=== PATIENT | male | born 1955 | race American Indian/Alaskan Native ===

== ENCOUNTER 2024-08-20 10:58 | Emergency (ER) | payer MEDICARE, OTHER ==
[~2024-08-20] VITALS: Ht 170.2 cm; Wt 41.6 kg
[2024-08-20] MEDS ORDERED: ondansetron HCL 4 MG/2 ML VIAL IV PRN (11:15)
[2024-08-20] MEDS ORDERED: ondansetron HCL 4 MG/2 ML VIAL IV ONE (11:15)
[2024-08-20] MEDS ORDERED: SODIUM CHLORIDE 0.9% 1,000 ML IV PRN (11:15)
[2024-08-20 11:22] LABS: BASOPHILS 0.3 % (0-2); EOSINOPHILS 0.2 % (0-6); HEMATOCRIT 30.7 % (35.0-50.0); HEMOGLOBIN 9.3 g/dL (12.0-18.0); LYMPHOCYTES 9.5 % (24-44); MCH 21.2 (27-36); MCHC 30.2 g/dl (30-36); MCV 70.5 fl (81-99); PLATELET COUNT 594 K/uL (140-440); RBC 4.35 M/ul (4.3-5.7); RDW 19.3 (10.5-15.0)
[2024-08-20 11:29] LABS: INR 1.21 (0.80-1.30); PROTIME 14.9 Sec (11.2-14.2)
[2024-08-20] MEDS ORDERED: HYDROmorphone HCL 1 MG/ML SYR IV PRN (11:30)
[2024-08-20 11:36] LABS: ALBUMIN 2.1 g/dL (3.4-5.0); ALBUMIN/GLOBULIN RATIO 0.51 (1.1-2.4); ANION GAP 14.2 (7-21); BILIRUBIN, TOTAL 0.8 ng/dL (0.2-1.0); BUN/CREATININE RATIO 15.38 (6.0-28.6); CALCIUM 8.2 mg/dL (8.5-10.1); CREATININE, SERUM 1.56 mg/dL (0.70-1.30); POTASSIUM 3.2 mmol/L (3.5-5.1); PROTEIN, TOTAL 6.2 g/dL (6.4-8.2)
[2024-08-20] MEDS ORDERED: PANTOPRAZOLE SODIUM 40 MG/10 ML VIAL IV ONE (13:00)
[2024-08-20] MEDS ORDERED: CEFTRIAXONE/SODIUM CHLORIDE 2 GM/100 ML PIGGYBACK IV ONE (13:15)
[2024-08-20] MEDS ORDERED: metroNIDAZOLE/SODIUM CHLORIDE 500 MG/100 ML PIGGYBACK IV ONE (13:15)
[2024-08-20 18:40] VITALS: BP 120/80
--- NOTE | 2024-08-20 22:09 | EKG ---
[facility] [address] [facility] [place] [address] Signed Normal sinus rhythm Nonspecific ST and T wave abnormality Prolonged QT Abnormal ECG No previous ECGs available Confirmed by Yayo Garcia MD () on 08/20/2024 10:08:41 PM Electronically Signed By: YAYO GARCIA MD 08/20/242208 PATIENT NAME: TRUONG CORDERO Electrocardiogram DATE OF : 55 PHYSICIAN: YAYO GARCIA MD REPORT #: [id number] REPORT IS CONFIDENTIAL AND NOT TO BE RELEASED WITHOUT AUTHORIZATION
== END 2024-08-20 18:40 | disposition short-term general hospital (02) ==
LOC: ED 10:58
PROVIDERS: Emergency Medicine
DX: C19 Malignant neoplasm of rectosigmoid junction (principal); C78.7 Secondary malignant neoplasm of liver and intrahepatic bile duct; E46 Unspecified protein-calorie malnutrition; Z68.1 Body mass index [BMI] 19.9 or less, adult
CPT/HCPCS: 36415; 71260; 74177; 80053; 83690; 83735; 85025; 85610; 93005; 93010; 96361; 96368; 99285-25; J0696; J1171; J2405; J2470; J7030; Q9967

== ENCOUNTER 2024-09-21 08:43 | Inpatient (IN) | payer MEDICARE, OTHER ==
[2024-09-21] VITALS (8 sets, daily range): BP systolic 86–105; BP diastolic 59–71
[~2024-09-21] VITALS: Ht 170.2 cm; Wt 54.7 kg
--- OUTSIDE RECORDS SUMMARY | ~2024-09-21 | XMS | Continuity of Care Document ---
Demographics + + + | Address | [address] | | | [place] [address] | + + + | Preferred Language | Unknown | + + + | Marital Status | Unknown | + + + | Quaker Affiliation | Unknown | + + + | Race | or | + + + | Ethnic Group | Not or | + + + Author + + + | Author | [place] | + + + | Organization | [facility] | + + + | Address | [address] | | | [place] [address] | + + + | Phone | | + + + Care Team Providers + + + + | Care Kick Boxer Name | Role | Phone | + + + + Unavailable | Unavailable | + + + + Allergies No information. Encounters No information. Functional Status No information. Immunizations No information. Medications No information. 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 | | + + + + | 2024-08-21 00:42:24 | Peptic ulcer, site | [facility] | | | unspecified, unspecified as | | | | acute or chronic, without | | | | hemorrhage or perforation | | + + + + | 2024-08-21 00:42:24 | Acute kidney failure, | [facility] | | | unspecified | | + + + + | 2024-08-21 00:42:24 | Ischemia and infarction of | [facility] | | | kidney | | + + + + | 2024-09-03 13:57:39 | Malignant neoplasm of | [facility] | | | colon, unspecified | | + + + + | 2024-09-03 13:57:39 | 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 | | + + + + | 2024-09-03 13:57:39 | 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 | | + + + + | 2024-09-03 13:57:39 | Iron deficiency anemia, | [facility] | | | unspecified | | + + + + | 2024-09-03 13:57:39 | Thrombocytosis, | [facility] | | | unspecified | | + + + + | 2024-09-03 13:57:39 | Unspecified severe | [facility] | | | protein-calorie | | | | malnutrition | | + + + + | 2024-09-03 13:57:39 | Other disorders of | [facility] | | | phosphorus metabolism | | + + + + | 2024-09-03 13:57:39 | Hypomagnesemia | [facility] | + + + + | 2024-09-03 13:57:39 | Hypokalemia | [facility] | + + + + | 2024-09-03 13:57:39 | Peptic ulcer, site | [facility] | | | unspecified, unspecified as | | | | acute or chronic, without | | | | hemorrhage or perforation | | + + + + | 2024-09-03 13:57:39 | Disease of intestine, | [facility] | | | unspecified | | + + + + | 2024-09-03 13:57:39 | Acute kidney failure, | [facility] | | | unspecified | | + + + + | 2024-09-03 13:57:39 | Ischemia and infarction of | [facility] | | | kidney | | + + + + | 2024-09-03 13:57:39 | Localized edema | [facility] | + + + + | 2024-09-16 16:00:07 | Post-op | [facility] | + + + + Procedures No information. Results/Labs No information. Social History +--------+ + + | date | description | facility | +--------+ + + Vital Signs No information."
--- OUTSIDE RECORDS SUMMARY | ~2024-09-21 | XMS | Continuity of Care Document ---
Demographics + + + | Address | [address] | | | [place] [address] | + + + | Preferred Language | Unknown | + + + | Marital Status | Unknown | + + + | Latter Day Affiliation | Unknown | + + + | Race | or | + + + | Ethnic Group | Not or | + + + Author + + + | Author | [place] | + + + | Organization | [place] | + + + | Address | [address] [facility] [address] | | | [place] [address] | + + + | Phone | | + + + Care Team Providers + + + + | Care Gold Miner Name | Role | Phone | + [...]
[2024-09-21 09:03] LABS: PH, VENOUS 7.393 (7.31-7.41)
[2024-09-21 09:06] LABS: BASOPHILS 0.3 % (0-2); EOSINOPHILS 0.3 % (0-6); HEMATOCRIT 26.5 % (35.0-50.0); HEMOGLOBIN 8.1 g/dL (12.0-18.0); LYMPHOCYTES 7.4 % (24-44); MCHC 30.5 g/dl (30-36); MCV 78.5 fl (81-99); MONOCYTES 6.4 % (0-12); NEUTROPHILS 85.6 % (39-80); PLATELET COUNT 567 K/uL (140-440); RBC 3.37 M/ul (4.3-5.7); RDW 23.8 (10.5-15.0)
[2024-09-21 09:18] LABS: INR 1.2 (0.80-1.30); PROTIME 15.1 Sec (11.2-14.2)
[2024-09-21 09:29] LABS: ALBUMIN 1.5 g/dL (3.4-5.0); ALBUMIN/GLOBULIN RATIO 0.35 (1.1-2.4); ANION GAP 19.1 (7-21); BILIRUBIN, TOTAL 0.7 ng/dL (0.2-1.0); BUN/CREATININE RATIO 9.57 (6.0-28.6); CALCIUM 7.5 mg/dL (8.5-10.1); CREATININE, SERUM 0.94 mg/dL (0.70-1.30); POTASSIUM 3.1 mmol/L (3.5-5.1); PROTEIN, TOTAL 5.8 g/dL (6.4-8.2)
[2024-09-21 09:31] LABS: ALCOHOL, MEDICAL <3 ng/dL (<3); LACTATE DEHYDROGENASE 1959 U/L (85-227)
[2024-09-21] MEDS ORDERED: LORazepam 2 MG/ML VIAL IV ONE ×2 (09:45→10:30)
[2024-09-21] MEDS ORDERED: DEXTROSE 5% IV ONE (11:45)
[2024-09-21] MEDS ORDERED: VANCOMYCIN HCL IV ONE (11:45)
[2024-09-21] MEDS ORDERED: CEFTRIAXONE/SODIUM CHLORIDE 2 GM/100 ML PIGGYBACK IV ONE (11:45)
[2024-09-21] MEDS ORDERED: VANCOMYCIN HCL 1,250 MG in DEXTROSE 5% 250 ML IV ONE (12:00)
[2024-09-21 12:42] LABS: MONONUCLEAR CELLS, BODY FLUID 89; PMNS, BODY FLUID 11; SOURCE, BODY FLUID ascites
[2024-09-21 12:46] LABS: WBC, BODY FLUID 131
[2024-09-21 12:47] LABS: RBC, BODY FLUID 21
[2024-09-21] MEDS ORDERED: KETAMINE in NS 50 MG/5 ML SYR IV ONE (13:00)
[2024-09-21 13:06] LABS: BILIRUBIN, URINE NEGATIVE (negative); BLOOD/HGB, URINE LARGE (Negative); KETONE, URINE NEGATIVE (Negative); LEUK ESTERASE, URINE NEGATIVE (negative); NITRITE, URINE POSITIVE (negative)
[2024-09-21 13:13] LABS: EPITHELIAL CELLS, URINE TRANSITIONAL 1+ /lpf (0-1+); RED BLOOD CELLS, URINE >50 /hpf (0-5)
[2024-09-21 13:14] LABS: BACTERIA, URINE 3+ /hpf (negative); CASTS, URINE NONE SEEN \\lpf; COLLECTION TYPE, URINE CLEAN CATCH; CRYSTALS, URINE NONE SEEN (0-1+); REFLEX CULTURE, URINE Yes (No)
[2024-09-21 13:26] LABS: AMPHETAMINES, URINE NEGATIVE (NEGATIVE); BARBITURATES, URINE NEGATIVE (NEGATIVE); BENZODIAZEPINE, URINE POSITIVE (NEGATIVE); BUPRENORPHINE, URINE NEGATIVE (NEGATIVE); CANNABINOID, URINE POSITIVE (NEGATIVE); COCAINE, URINE NEGATIVE (NEGATIVE); ECSTASY, URINE NEGATIVE (NEGATIVE); FENTANYL, URINE NEGATIVE (NEGATIVE); METHADONE, URINE NEGATIVE (NEGATIVE); OPIATES, URINE NEGATIVE (NEGATIVE); OXYCODONE, URINE NEGATIVE (NEGATIVE); PHENCYCLIDINE, URINE NEGATIVE (NEGATIVE)
[2024-09-21 14:11] LABS: LACTIC ACID, BLOOD 2.1 mmol/L (0.4-2.0)
[2024-09-21] MEDS ORDERED: SODIUM CHLORIDE 0.9% 1,000 ML IV PRN (16:00)
[2024-09-21] MEDS ORDERED: ACETAMINOPHEN 325 MG TAB PO PRN (16:30)
[2024-09-21] MEDS ORDERED: LACTATED RINGER'S 1,000 ML IV SCH (16:30)
[2024-09-21] MEDS ORDERED: ondansetron HCL 4 MG/2 ML VIAL IV PRN (16:30)
--- NOTE | 2024-09-21 16:48 | NUR ---
68 YEAR OLD ADMITTED TO CCU FROM ER VIA STRETCHER UNDER DR. GARCIA WITH DX OF UTI/SEPSIS. PATIENT NOT ABLE TO ANWERE QUESTIONS ON ADMIT. PATIENT FAMILY IN ROOM AND ABLE TO HELP WITH ADMISSION. NS BOLUS HUNG PER ORDERS.
[2024-09-21] MEDS ORDERED: SODIUM CHLORIDE 0.9% 1,000 ML IV SCH ×2 (17:00→18:00)
[2024-09-21] MEDS ORDERED: MORPHINE SULFATE 4 MG/ML VIAL IV PRN (17:30)
[2024-09-21] MEDS ORDERED: MORPHINE SULFATE 4 MG/ML VIAL ONE (17:31)
[2024-09-21] MEDS ORDERED: LIDOCAINE 2% VISCOUS 6 ML SYR ONE (17:34)
[2024-09-21] MEDS ORDERED: LIDOCAINE 2% VISCOUS 6 ML SYR TOP ONE (17:45)
[2024-09-21] MEDS ORDERED: POTASSIUM CHLORIDE 40 MEQ,LIDOCAINE HCL 1% 40 MG in DEXTROSE 5% 250 ML IV ONE (18:00)
--- NOTE | 2024-09-21 18:00 | NUR ---
CHILLING, AX TEMP 100.7. HR 150. DR. GARCIA AWARE. ISBELL ORDERED. THIS NO DONE FORESKIN TIGHT AND SMALL AMOUNT OF BLEEDING NOTED FROM URETHRAL [facility]. BLADDER SCAN DONE, TOTAL = 117. PUREWICK APPLIED. PATIENTN RESTLESS.
[2024-09-21] MEDS ORDERED: POTASSIUM CHLORIDE 10 MEQ/100 ML BAG IV SCH (19:00)
--- NOTE | 2024-09-21 19:19 | NUR ---
RESTING, REPORT GIVEN. NS BOLUS SECOND LITER INFUSING, LR AT 125 ML/HR INFUSING. K RIDER INFUSING. DR. GARCIA AWARE OF MOST RECENT TEMP OF 101.7, AND U/O AND THE MAG LEVEL.ORDERS RECEIVED,
[2024-09-21] MEDS ORDERED: MAGNESIUM SULFATE 2 GM/50 ML BAG IV SCH (19:30)
[2024-09-21] MEDS ORDERED: KETOROLAC TROMETHAMINE 15 MG/ML VIAL IV PRN (19:30)
--- NOTE | 2024-09-21 20:00 | NUR ---
PATIENT RESTLESS IN BED. NEW CARDIAC LEADS PLACED. PATIENT IS ORIENTED TO SELF. COMPLETES BEDSIDE SWALLOW EVAL WITHOUT CONCERNS. SIPS OF WATER PROVIDED PER REQUEST. PATIENT TOLERTAING ROOM AIR. LUNG SOUNDS ARE DIM THROUGHOUT. ABD FLAT, SOFT, BOWEL SOUNDS ACTIVE. COLOSTOMY IN PLACE, SITE WNL. STOOL IN BAG APPEARS SOFT AND BROWN. PATIENT HAD ONE VOID TO SUCTION CANISTER PER MALE EXTRENAL CATH; URINE IS ORANGE IN COLOR. PATIENT REMOVED EXTERNAL CATH. IV FLUIDS AND ELECTROLYTE REPLACEMENT INFUSING. IV SITES WNL X2. REQUEST ADDITIONAL SITE FROM WILLIAM FABIAN.
[2024-09-21 20:13] LABS: HEMOGLOBIN 6.9 g/dL (12.0-18.0)
[2024-09-21 20:20] LABS: MONOCYTES 0.5 % (0-12)
[2024-09-21 20:22] LABS: BASOPHILS 0.2 % (0-2); HEMATOCRIT 21.9 % (35.0-50.0); LYMPHOCYTES 0.8 % (24-44); MCHC 31.4 g/dl (30-36); MCV 76.5 fl (81-99); NEUTROPHILS 98.5 % (39-80); PLATELET COUNT 429 K/uL (140-440); RBC 2.87 M/ul (4.3-5.7); RDW 23.8 (10.5-15.0)
--- NOTE | 2024-09-21 20:35 | NUR ---
20G PIV STARTED IN LFA, GOOD BLOOD RETURN, FLUSHED WELL. LABS SENT. PRIMARY RN IN ROOM.
--- NOTE | 2024-09-21 20:36 | NUR ---
ATTEMPTED TO PLACED ISBELL CATHETER. RN ABLE TO LOCATE URETHRA BUT UNABLE TO ADVANCE CATHETER IT WOULD COIL. PT BEGAN TO HAVE BL0OD AT [facility] SO ATTEMPT WAS ABANDONED. PT TOLERATED WELL AND SLEPT THROUGH ATTEMPTS TO PLACE ISBELL. PT CLEANED UP AND BRIEF PLACED.
--- NOTE | 2024-09-21 21:04 | NUR ---
PATIENT SITTING UP IN BED. PROVIDED WITH MORE SIPS OF WATER. PATIENT DENIED PAIN. ENCOURAGED TO REST IN BED. WARM BALNKET PROVIDED. ORAL TEMP WNL.
[2024-09-21 21:15] LABS: ABO O; ANTIBODY SCREEN NEGATIVE; IS CROSSMATCH COMPATIBLE; RH POSITIVE
[2024-09-21 21:16] LABS: ABO O; RH POSITIVE
--- NOTE | 2024-09-21 21:51 | NUR ---
PATIENT RECEIVING PRBC PER ORDER. NO SIGNS OF REACTION AFTER 15 MINS CHECK. PATIENT REMAINS RESTING IN BED. ASSISTED PATIENT TO USE THE URNAL. PATIENT DOESN'T CALL FOR ASSIST BUT IS ABLE TO COMMUNICATE NEEDS. BED ALARM IN PLACE FOR SAFETY.
[2024-09-21] MEDS ORDERED: NOREPINEPHRINE BITARTRATE 250 ML IV SCH (22:00)
--- NOTE | 2024-09-21 22:00 | NUR ---
IV SITE IN RIGHT FOREARM APPEARS INFILTRATED. FLUSHES EASILY BUT BRUISING NOTED ABOVE INSERTION SITE, NOT PREVIOUSLY NOTED. INFUSION STOPPED. ATTEMPTS MADE TO RESTART NEW IV SITE; UNSUCESSFUL. BLOOD RESUMED IN LEFT UPPER ARM. IVF AND ELECTROLYTE REPLACEMENT INFUSING. PATIENT'S BP SOFT; MAP > 65. AWARE.
--- NOTE | 2024-09-21 22:34 | NUR ---
PATIENT PROVIDED PRN PAIN MEDS FOR REPORTED GENERALIZED PAIN. PATIENT RESTLESS IN BED. REPOSITIONED FOR COMFORT. 2L NC PLACED FOR DESATS WHEN RESTING.
--- NOTE | 2024-09-21 22:55 | EKG ---
[facility] [address] [place] [address] Signed Normal sinus rhythm Low voltage QRS Nonspecific T wave abnormality Prolonged QT Abnormal ECG When compared with ECG of 20-AUG-2024 11:05, T wave inversion no longer evident in Inferior leads T wave inversion now evident in Anterior leads Nonspecific T wave abnormality, improved in Lateral leads QT has lengthened Confirmed by Yayo Garcia MD () on 09/21/2024 10:55:29 PM Electronically Signed By: YAYO GARCIA MD 09/21/24 2255 PATIENT NAME: TRUONG CORDERO Electrocardiogram DATE OF : 55 PHYSICIAN: YAYO GARCIA MD REPORT #: [id number] REPORT IS CONFIDENTIAL AND NOT TO BE RELEASED WITHOUT AUTHORIZATION
--- NOTE | 2024-09-21 23:20 | NUR ---
IV SITE IN LEFT UPPER ARM IN NO LONGER PATENT. NO SIGNS OF SWELLING OR INFILTRATION. SITE WILL NOT FLUSH. IV FLUIDS STOPPED. BLOOD PRODUCTS CONTINUED IN LEFT FOREARM. SECOND IV SITE ESTABLISHED BY RADIO TOWER TECHNICIAN. IV FLUIDS RESTARTED.
[2024-09-22] VITALS (17 sets, daily range): BP systolic 85–124; BP diastolic 61–88
--- NOTE | 2024-09-22 00:20 | NUR ---
BLOOD PRODUCTS FINISHED AT 2350. VS STABLE. LAB IN FOR REPEAT BLOOD DRAW. PATIENT ASSISTED TO SIT UP IN BED. SIPS OF WATER PROVIDED. PATIENT DENIED NEED TO VOID. DENIED PAIN. CALL LIGHT IN REACH. BED ALARM ACTIVE.
[2024-09-22 00:26] LABS: HEMOGLOBIN 7.3 g/dL (12.0-18.0)
[2024-09-22 00:29] LABS: HEMATOCRIT 23.2 % (35.0-50.0); MCH 24.6 (27-36); MCHC 31.6 g/dl (30-36); MCV 77.8 fl (81-99); PLATELET COUNT 405 K/uL (140-440); RBC 2.98 M/ul (4.3-5.7); RDW 23.1 (10.5-15.0)
[2024-09-22 00:41] LABS: ANION GAP 12.6 (7-21); BUN/CREATININE RATIO 8.19 (6.0-28.6); CREATININE, SERUM 0.61 mg/dL (0.70-1.30); MAGNESIUM 1.8 mg/dL (1.8-2.4); POTASSIUM 2.6 mmol/L (3.5-5.1)
[2024-09-22 00:54] LABS: BANDS, MANUAL DIFF 6; LYMPHOCYTES, MANUAL DIFF 1; MONOCYTES, MANUAL DIFF 1; NEUTROPHILS, MANUAL DIFF 92
--- NOTE | 2024-09-22 01:11 | NUR ---
UPDATED ON CURRENT LABS AND VS. SEE NEW ORDERS.
[2024-09-22] MEDS ORDERED: MAGNESIUM SULFATE 2 GM/50 ML BAG IV ONE (01:15)
[2024-09-22] MEDS ORDERED: POTASSIUM CHLORIDE 10 MEQ/100 ML BAG IV SCH (01:30)
--- NOTE | 2024-09-22 02:23 | NUR ---
SECOND UNIT PRBC STARTED. PATIENT RESTING IN BED. VS STABLE. IV SITES WNL X2. FLUSH EASILY. PATIENT ASSISTED TO REPOSITION IN THE BED. DENIED ANY NEEDS OR CONCERNS. CALL LIGHT IN REACH. BED ALARM ACTIVE.
--- NOTE | 2024-09-22 04:15 | NUR ---
BLOOD PRODUCTS FINISHED INFUSING. NO SIGNS OF REACTION. IV SITE WNL. VS STABLE. PATIENT RESTING IN BED. EYES CLOSED.
--- NOTE | 2024-09-22 04:50 | NUR ---
PATIENT UP TO THE BSC. PATIENT IS WEAK BUT ABLE TO STAND WITH ASSIST. PATIENT IS ORIENTED TO SELF, YEAR, AND SURROUNDINGS. PATIENT DOES NOT REMEMEBER YESTERDAY OR ARRIVING TO THE HOSPITAL. PATIENT REPORTS FEELING "PRETTY GOOD" AND DENIED ANY CONCERNS. VS STABLE. PATIENT RETURNED TO BED. IV FLUIDS AND POTASSIUM REPLACEMENT INFUSING. IV SITE WNL. BED ALARM ON. CALL LIGHT IN REACH.
[2024-09-22 05:23] LABS: HEMOGLOBIN 8.8 g/dL (12.0-18.0)
[2024-09-22 05:28] LABS: HEMATOCRIT 27.8 % (35.0-50.0); LYMPHOCYTES 2.5 % (24-44); MCH 25.2 (27-36); MCHC 31.5 g/dl (30-36); MONOCYTES 2.6 % (0-12); NEUTROPHILS 94.9 % (39-80); PLATELET COUNT 385 K/uL (140-440); RBC 3.47 M/ul (4.3-5.7)
[2024-09-22 05:40] LABS: ALBUMIN 1.3 g/dL (3.4-5.0); ALBUMIN/GLOBULIN RATIO 0.36 (1.1-2.4); ANION GAP 10.3 (7-21); BILIRUBIN, TOTAL 1.8 ng/dL (0.2-1.0); CALCIUM 7.1 mg/dL (8.5-10.1); CREATININE, SERUM 0.6 mg/dL (0.70-1.30); MAGNESIUM 2.4 mg/dL (1.8-2.4); PHOSPHORUS, INORGANIC 2.6 mg/dL (2.5-4.9); POTASSIUM 3.3 mmol/L (3.5-5.1); PROTEIN, TOTAL 4.9 g/dL (6.4-8.2)
--- NOTE | 2024-09-22 06:18 | NUR ---
PATIENT RESTING IN BED. EYES CLOSED. VS STABLE. IV SITE WNL X2. IV FLLUIDS PER ORDER. BED ALARM ACTIVE.
--- NOTE | 2024-09-22 07:30 | NUR ---
REPORT RECEIVED. PATIENT IS RESTING IN BED AT THIS TIME. IVF PATENT.
--- NOTE | 2024-09-22 08:00 | NUR ---
ASSESSMENT DONE. PATIENT IS ASKING QUESTIONS ABOUT WHAT HAPPENED YESTERDAY, AND WHY IS HE IN HOSPITAL. TALKED WITH PATIENT ABOUT THIS. DENIES PAIN OR NAUSEA. READY FOR BREAKFAST. PATIENT IS ABLE TO FOLLOW COMMANDS, COOPERATIVE.
[2024-09-22] MEDS ORDERED: CEFTRIAXONE/SODIUM CHLORIDE 2 GM/100 ML PIGGYBACK IV SCH (09:00)
--- NOTE | 2024-09-22 09:00 | NUR ---
TOOK BREAKFAST POOR. DENIES NEEDS. DAUGHTER IN ROOM. SHE IS TELLING PATIENT WHAT HAPPENED WITH HIM YEATERDAY.
[2024-09-22] MEDS ORDERED: POTASSIUM CHLORIDE 40 MEQ,LIDOCAINE HCL 1% 40 MG in DEXTROSE 5% 250 ML IV ONE (10:00)
--- NOTE | 2024-09-22 10:00 | NUR ---
AMBULATED TO BR USING WALKER. TOLERATED AMBULATION WELL. DENIES PAINFUL URINATION. BACK TO BED W/O INCIDENT.
--- NOTE | 2024-09-22 10:30 | NUR ---
DR. GARCIA HERE TO SEE PATIENT AND TALK WITH FAMILY MEMBERS. NO FUTHER ORDERS AT THIS TIME.
--- NOTE | 2024-09-22 11:19 | NUR ---
RESTING. FAMILY IN ROOM. NO CHANGES.
[2024-09-22] MEDS ORDERED: PHARMACY RENAL DOSE ADJUSTMENT 1 DOSE MISC PO SCH (12:00)
--- NOTE | 2024-09-22 12:10 | NUR ---
sleeping, WILL WAKE PATIENT AT 1230 FOR ASSESSMENT AND LUNCH IF DOESN'T WAKE BEFORE THEN. NO DISTRESS NOTED.
--- NOTE | 2024-09-22 12:30 | NUR ---
awake. COLOSTOMY EMPTIED FOR LARGE AMOUNT OF BROWN SOFT STOOL. AFTER OSTOMY EMPTIED, SITTING UP IN BED FOR LUNCH, DENIES PAIN OR NAUSEA.
--- NOTE | 2024-09-22 13:30 | NUR ---
TOOK LUNCH POOR. IS ALSEEP NOW. HAS VOIDED ONCE SO FAR TODAY.
[2024-09-22] MEDS ORDERED: AZITHROMYCIN 500 MG in SODIUM CHLORIDE 0.9% 250 ML IV SCH (13:52)
--- NOTE | 2024-09-22 14:30 | NUR ---
SLEEPING. NO DISTRESS NOTED.
--- NOTE | 2024-09-22 15:11 | EKG ---
[facility] [address] [facility] [place] [address] Signed Normal sinus rhythm Low voltage QRS Prolonged QT Abnormal ECG When compared with ECG of 21-SEP-2024 10:32, QT has shortened Confirmed by Yayo Garcia MD () on 09/22/2024 3:11:45 PM Electronically Signed By: YAYO GARCIA MD 09/22/24 1511 PATIENT NAME: TRUONG CORDERO Electrocardiogram DATE OF : 55 PHYSICIAN: YAYO GARCIA MD REPORT #: [id number] REPORT IS CONFIDENTIAL AND NOT TO BE RELEASED WITHOUT AUTHORIZATION
[2024-09-22] MEDS ORDERED: TYLENOL325 MG PO (16:45)
--- NOTE | 2024-09-22 17:30 | NUR ---
HAUSEATED AFTER TAKING A FEW BITES OF DINNER. ZOFRAN 4 MG IV GIVEN.
[2024-09-22 18:03] LABS: IS CROSSMATCH COMPATIBLE
--- NOTE | 2024-09-22 20:36 | NUR ---
PATIENT RESTING IN BED, EYES CLOSED. VS STABLE. PATIENT WOKE EASLIY TO VOICE. PATIENT DENIED PAIN OR GI UPSET. ASSISTED TO HAVE SIPS OF WATER. PATIENT REPORTS FEELING VERY TIRED. ALERT TO PERSON, SURROUNDINGS, YEAR, AND FOLLOWS DIRECTIONS. PATIENT IS WEAK OVERALL. TOLERATING ROOM AIR. LUNG SOUNDS DIMINISHED. ABD SOFT, BOWEL SOUNDS ACTIVE. COLOSTOMY IN PLACE, SMALL AMOUNT OF STOOL NOTED. PATIENT DENIED NEED TO VOID. IV SITES WNL X2. GENERALIZED EDEMA NOTED IN L[place] ARMS; WORSE ON RIGHT ARM. 2+ EDEMA IN [place] LOWER EXTREMITIES. LIGHTS DIMMED PER REQUEST, CALL LIGHT IN REACH. BED ALARM ACTIVE.
--- NOTE | 2024-09-22 21:09 | NUR ---
PATIENT REPOSITIONED TO RIGHT SIDE. PATIENT DENIED GI UPSET OR PAIN. NEW ATTNEDS IN PLACE. PATIENT DENIED NEED TO VOID AT THIS TIME. IV SITE WNL, IVF PER ORDER. VS STABLE. ORAL TEMP WNL. CALL LIGHT IN REACH. BED ALARM ON. LIGHTS DIMMED PER REQUEST.
--- NOTE | 2024-09-22 22:30 | NUR ---
PATIENT CALLED FOR ASSIST UP TO THE BATHROOM. PATIENT REQUIRED MINIMAL ASSIST TO GET OUT OF BED. PATIENT USED FWW AND AMBULATED TO BATHROOM. VOIDED AND HAD SOME DISCHARGE PER RECTUM. THIS WAS YELLOW IN COLOR AND PARTIALLY LIQUID. PATIENT BACK TO BED. ASSISTED TO POSITION FOR COMFORT. PROVIDED WARM BLANKET. DENIED OTHER NEEDS. CALL LIGHT IN REACH.
[2024-09-23] VITALS (14 sets, daily range): BP systolic 110–130; BP diastolic 76–97
--- NOTE | 2024-09-23 | NUR ---
PATIENT UP TO THE BEDSIDE TO SIT. PATIENT STATED HE JUST WANTED TO SIT UP FOR A BIT. DENIED PAIN. DENIED SOB. VS STABLE. PROTEIN APPLE JUICE PROVIDED PER REQUEST. BEDSIDE TABLE IN FRONT OF PATIENT. PATIENT VERBALIZED UNDERSTANDING TO NOT STAND WITHOUT ASSIST AND TO CALL IF HE NEEDED HELP BACK INTO BED. PATIENT PROMISED HE WOULD DO THIS. CALL LIGHT IN REACH.
--- NOTE | 2024-09-23 00:30 | NUR ---
PATIENT BACK INTO BED WITHOUT ASSIST. REPORTS BEING COMFORTABLE AND DENIED ANY FURTHER NEEDS AT THIS TIME. CALL LIGHT IN REACH. IVF PER ORDER, SITE WNL.
--- NOTE | 2024-09-23 00:47 | NUR ---
PATIENT'S HR UP SLIGHTLY; 100-110. ORAL TEMP WNL. PATIENT REPORTS DIFFICULTY SLEEPING DUE TO GENERAL DISCOMFORT. ATTEMPTS MADE TO MAKE PATIENT COMFORTABLE IN BED. PRN PAIN MEDS PROVIDED.
--- NOTE | 2024-09-23 03:00 | NUR ---
PATIENT RESTING IN BED. EYES CLOSED. VS STABLE. ALLOWED PATIENT TO REST. CALL LIGHT IN REACH.
--- NOTE | 2024-09-23 05:15 | NUR ---
PATIENT CALLED FOR ASSIST. PATIENT UP TO THE BATHROOM. SBA WITH FWW. PATIENT WEAK BUT STEADY ON HIS FEET. PATIENT VOIDS AND RETURNED TO BED. ASSISTED TO POSITION FOR COMFORT. HOB ELEVATED. PROTIEN JUICE PROVIDED. IV FLUIDS INFUSING PER ORDER. SITE WNL. PATIENT DENIED ANY NEEDS OR CONCERNS. BREAKFAST ORDER NOTED. CALL LIGHT IN REACH.
[2024-09-23 06:13] LABS: EOSINOPHILS 0.4 % (0-6); HEMOGLOBIN 9.6 g/dL (12.0-18.0); RDW 22.7 (10.5-15.0)
[2024-09-23 06:14] LABS: BASOPHILS 0.5 % (0-2); HEMATOCRIT 29.4 % (35.0-50.0); LYMPHOCYTES 4.8 % (24-44); MCH 25.4 (27-36); MCHC 32.5 g/dl (30-36); MCV 78.2 fl (81-99); MONOCYTES 5.3 % (0-12); PLATELET COUNT 405 K/uL (140-440); RBC 3.76 M/ul (4.3-5.7)
[2024-09-23 06:18] LABS: ANION GAP 11.3 (7-21); BUN/CREATININE RATIO 16.66 (6.0-28.6); CALCIUM 7.4 mg/dL (8.5-10.1); CREATININE, SERUM 0.54 mg/dL (0.70-1.30); MAGNESIUM 1.7 mg/dL (1.8-2.4); POTASSIUM 3.3 mmol/L (3.5-5.1)
--- NOTE | 2024-09-23 07:30 | NUR ---
REPORT RECEIVED. PATIENT IS AWAKE AND WATCHING TV. DENIES PAIN.
--- NOTE | 2024-09-23 07:33 | NUR ---
PATIENT CALLED TO REPORT IV LEAKING. IV CATH OUT OF SKIN. DRESSING REMOVED. GAUZE PLACED. IV FLUIDS SWITCHED TO SECOND IV SITE. SITE WNL.
[2024-09-23] MEDS ORDERED: MAGNESIUM SULFATE 2 GM/50 ML BAG IV ONE (08:00)
[2024-09-23] MEDS ORDERED: POTASSIUM CHLORIDE 10 MEQ TABCR PO ONE (08:00)
--- NOTE | 2024-09-23 08:30 | NUR ---
IN CHAIR EATING BREAKFAST. DENIES PAIN.
[2024-09-23] MEDS ORDERED: OFLOXACIN5 ML OTIC (09:30)
[2024-09-23] MEDS ORDERED: OXYCODONE HCL5 MG PO (09:32)
[2024-09-23] MEDS ORDERED: KLOR-CON 1010 MEQ PO (09:33)
--- NOTE | 2024-09-23 09:33 | NUR ---
MED REC COMPLETE
--- NOTE | 2024-09-23 10:07 | NUR ---
ALERT AND ORIENTED IN RECLINER. PATIENT LIVES WITH HIS SON IN SINGLE LEVEL HOUSE. HE HAS A CANE, NO OTHER DME. Ginny HERMOSILLO RN, IN ROOM VOICES CONCERN ABOUT PATIENT GETTING ON AND OFF TOILET HE HAS HAD DIFFICULTY WHILE IN HOSPITAL. PATIENT STATES HE HAS NO ISSUES GETTING ON AND OFF TOILET AT HOME. PATIENT DOES NOT DRIVE, HIS SON ASSISTS WITH TRANSPORTATION. HE HAS NO FINANCIAL CONCERNS. STATES HE CAN PAY UTILITIES AND GET FOOD AND MEDS WITHOUT DIFFICULTY. DENIES NEEDS AT HOME AT THIS TIME.
--- NOTE | 2024-09-23 10:20 | NUR ---
BACK TO BED WITH ASSIST. ENC PATIENT TO TAKE CLEAR ENSURE.
--- NOTE | 2024-09-23 11:08 | NUR ---
RESTING IN BED. SISTER IN ROOM.
--- NOTE | 2024-09-23 11:35 | NUR ---
UR CLINICAL REVIEW: 2 MN FOR VERSALUS-MEETS INPT CRITERIA FOR UTI MEDICARE INPT 09/21/24 @ 1629 ORDER MATCHES REG NO AUTH REQUIRED PER MEDICARE GUIDELINES DISCHARGE TO HOME WITH FAMILY WHEN STABLE
--- NOTE | 2024-09-23 12:00 | NUR ---
FAMILY IN ROOM. ASSESSMENT DONE. PATIENT WISHES TO HOLD LUNCH FOR NOW. DENIES NEEDS.
[2024-09-23 14:26] LABS: TSH, 3RD GENERATION 3.013 uIU/mL (0.358-3.740)
--- NOTE | 2024-09-23 14:30 | NUR ---
OSTOMY LEAKING. OSTOMY BAG AND WAFER CHANGED. PATIENT TOLERATED WELL. STOMA PINK. DENIES PAIN. IVF INFUSING AT 75 ML/HR. OVERALL PATIENT HAS INCREASE GENERALIZED EDEMA. WITH AMBULATION TO BR, DOES GET INCREAS SHORTNESS OF BREATH. PATIENT HAS BEEN UP MORE TODAY. SAT UP IN CHAIR FOR APPROX 10 MIN, BED LINES CHANGED WHILE PATIENT SITTING IN CHAIR. FAMILY MEMBER IN ROOM
--- NOTE | 2024-09-23 15:45 | NUR ---
NUTRITION CONSULT RECEIVED FOR POOR APPETITE. PATIENT WAS SLEEPING EARLIER TODAY, DID NOT CONDUCT INTERVIEW. HIS SISTER WAS VISITING. SHE SAID HE HAS NOT BEEN EATING MUCH BECAUSE HE FEELS FULL. HE DOES PREFER SOFTER FOOD. REGULAR DIET IS IN PLACE. NURSING HAS OFFERED CLEAR ENSURE THIS MORNING. RD WILL CHECK WITH PATIENT TOMORROW TO SEE IF HE LIKES THE CLEAR ENSURE OR ANY TYPE OF ENSURE AND ASSESS HIS POOR APPETITE FURTHER.
--- NOTE | 2024-09-23 17:55 | NUR ---
DR. CORREA AWARE OF PATIENT INCREASE GENERAL EDEMA AND INCREASE SHORTNESS OF BREATH. ORDERS RECEIVED FOR ALBUMIN, CHEST XRAY, BNP, SL IVF.
--- NOTE | 2024-09-23 18:10 | NUR ---
LAB HERE TO DRAW BNP. IVF STOPPED, ALBUMIN HUNG.
[2024-09-23] MEDS ORDERED: ALBUMIN HUMAN 25% 100 ML BTL IV ONE (18:15)
--- NOTE | 2024-09-23 18:25 | NUR ---
MORPHINE 2 MG IV GIVEN FOR RESP COMFORT.
--- NOTE | 2024-09-23 18:40 | NUR ---
CXR DONE. PATIENT STATES HE FEELS BETTER AFTER MORPHINE GIVEN.
--- NOTE | 2024-09-23 19:21 | NUR ---
DR. CORREA AWARE OF BNP. ORDERS RECEIVED TO GIVE LASIX 40 MG IV. REPORT TO POT FLUXER.
[2024-09-23] MEDS ORDERED: FUROSEMIDE 40 MG/4 ML VIAL IV ONE (19:30)
--- NOTE | 2024-09-23 19:45 | NUR ---
handoff report received from day shift RN. patient resting in bed with son at bedside. patient has no needs at this time. call light within reach.
--- NOTE | 2024-09-23 20:15 | NUR ---
IV LASIX GIVEN PER EMAR. PATIENT UP TO BATHROOM WITH FWW AND X1 SBA. PATIENT STEADY ON FEET. PATIENT STATES HE FEELS A LITTLE SHORT OF BREATH WITH MOVEMENT. PATIENT AMBULATES BACK TO BED. FRESH ICE WATER AND ENSURE PROVIDED. SON REMAINS AT BEDSIDE. NO FURTHER NEEDS AT THIS TIME. CALL LIGHT WITHIN REACH.
[2024-09-23 20:39] LABS: TOTAL PROTEIN FLUID SOURCE Ascites fluid (()); TOTAL PROTEIN, BODY FLUID 1.4 g/dL (())
--- NOTE | 2024-09-23 20:55 | NUR ---
PATIENT ASSESSMENT COMPLETE. PATIENT ALERT AND ORIENTED, FOLLOWS COMMANDS AND ANSWERS QUESTIONS APPROPRIATELY. PATIENT REMAINS ON ROOM AIR, DENIES FEELING SOB AT THIS TIME. PATIENT TACHYCARDIC, HR 110-120'S. BP STABLE. PATIENT IV SITE WNL; SALINE LOCKED. PATIENT COLOSTOMY WNL. PATIENT CONTINUES TO HAVE 2+ LOWER EXTREMITY EDEMA, PATIENT STATES IT LOOKS MUCH BETTER TODAY. PATIENT HAS NO FURTHER NEEDS AT THIS TIME. CALL LIGHT WITHIN REACH.
--- NOTE | 2024-09-23 23:33 | NUR ---
PATIENT RESTING IN BED WITH EYES CLOSED, RR 20. VITAL SIGNS STABLE. NO NEEDS AT THIS TIME. CALL LIGHT WITHIN REACH.
[2024-09-24] VITALS (15 sets, daily range): BP systolic 11–143; BP diastolic 78–94
--- NOTE | 2024-09-24 00:30 | NUR ---
PATIENT AWAKE IN BED. PATIENT CONTINUES TO USE URINAL IN BED WITH NO ASSISTANCE NEEDED. PATIENT REMAINS ON ROOM AIR, O2 SATURATION 98%. PATIENT DENIES ANY SOB OR PAIN AT THIS TIME. PATIENT HR 90'S-100'S. BP STABLE. RR 17. PATIENT REPOSITONED IN BED. NO FURTHER NEEDS AT THIS TIME. CALL LIGHT WITHIN REACH.
--- NOTE | 2024-09-24 02:13 | NUR ---
patient resting in bed with eyes closed, RR 20. vital signs stable. no needs at this time. call light within reach.
--- NOTE | 2024-09-24 03:35 | NUR ---
patient used call light requesting to get up to bathroom. patient ambulates with FWW and x1 SBA for cord management. patient steady on feet. patient states his legs feel registered nurse first assistant. patient back to bed. denies further needs at this time. vital signs stable. call light within reach.
--- NOTE | 2024-09-24 05:15 | NUR ---
lab in patient room for AM lab draw
[2024-09-24 05:23] LABS: BASOPHILS 0.5 % (0-2); EOSINOPHILS 0.6 % (0-6); HEMATOCRIT 30.8 % (35.0-50.0); LYMPHOCYTES 6.8 % (24-44); MCH 25.4 (27-36); MCHC 32.5 g/dl (30-36); MONOCYTES 5.2 % (0-12); NEUTROPHILS 86.9 % (39-80); PLATELET COUNT 337 K/uL (140-440); RBC 3.95 M/ul (4.3-5.7); RDW 22.6 (10.5-15.0)
[2024-09-24 05:35] LABS: ANION GAP 10.7 (7-21); BUN/CREATININE RATIO 8.16 (6.0-28.6); CALCIUM 7.5 mg/dL (8.5-10.1); CREATININE, SERUM 0.49 mg/dL (0.70-1.30); MAGNESIUM 1.4 mg/dL (1.8-2.4); POTASSIUM 2.7 mmol/L (3.5-5.1)
[2024-09-24 05:40] LABS: SMEAR REVIEW BLOOD SEE COMMENTS
--- NOTE | 2024-09-24 06:10 | NUR ---
PATIENT UP TO BATHROOM WITH FWW AND X1 SBA. PATIENT STEADY ON FEET. PATIENT WEIGHT TAKEN ON STANDING SCALE AND RECORDED. PATIENT BACK TO BED. PATIENT PROVIDED WITH ENSURE AND FRESH ICE WATER. PATIENT DENIES ANY SOB OR PAIN AT THIS TIME. PATIENT REMAINS AFEBRILE. VITAL SIGNS STABLE. NO FURTHER NEEDS AT THIS TIME. CALL LIGHT WITHIN REACH.
--- NOTE | 2024-09-24 07:30 | NUR ---
REPORT RECEIVED. PATIENT UP TO BR TO VOID. BACK TO BED W/O INCIDENT. DENIES PAIN.
[2024-09-24] MEDS ORDERED: LIDOCAINE HCL IV ONE (08:00)
[2024-09-24] MEDS ORDERED: MAGNESIUM SULFATE 2 GM/50 ML BAG IV ONE (08:00)
[2024-09-24] MEDS ORDERED: POTASSIUM CHLORIDE 10 MEQ TABCR PO ONE (08:00)
[2024-09-24] MEDS ORDERED: SODIUM CHLORIDE 0.9% IV ONE (08:00)
[2024-09-24] MEDS ORDERED: POTASSIUM CHLORIDE IV ONE (08:00)
[2024-09-24] MEDS ORDERED: POTASSIUM CHLORIDE 40 MEQ,LIDOCAINE HCL 1% 40 MG in DEXTROSE 5% 250 ML IV ONE (08:00)
[2024-09-24] MEDS ORDERED: FUROSEMIDE 40 MG/4 ML VIAL IV SCH (09:00)
--- NOTE | 2024-09-24 09:00 | NUR ---
DR. CORREA HERE TO SEE PATIENT. ORDERS RECEIVED FOR SHAHEED ERAZO. THESE PUT ON PATIENT. K RIDER, MAG RIDER AND ZITHROMAX INFUSING TO LEFT UPPER ARM IV SITE. PATIENT ONLY TOOK A COUPLE OF BITES OF APPLESAUSE FOR BREAKFAST. CONTINUES TO TAKE VVERY MINIMAL FOOD. STATES HE GETS FULL AFTER TAKING A COUPLE OF BITES. TOOK ORAL KCL EARLIER W/O PROBLEMS. LASIX 40 MG IV GIVEN. PATIENT EDUCATION GIVEN ON ALL MEDICATIONS HE HAS RECEIVED THIS MORNING.
--- NOTE | 2024-09-24 10:17 | NUR ---
PT NOT AVAILABLE FOR VISIT. PROVIDED PRAYER.
--- NOTE | 2024-09-24 11:09 | NUR ---
TRYING TO REST. HAS BEEN VOIDING FREQUENTLY TO URINAL. URINE IS YELLOW IN COLOR. DENIES PAINFUL URINATION.
--- NOTE | 2024-09-24 13:28 | NUR ---
RESTING IN BED. ALLOWED TO REST. WILL SPEAK WITH PATIENT AT LATER TIME. PREVIOUSLY DISCUSSED HIS PLAN TO DC TO HOME WITH SON WHEN MEDICALLY STABLE.
--- NOTE | 2024-09-24 13:48 | NUR ---
PATIENT ONLY ATE APPLESAUCE FOR BREAKFAST. REFUSED LUNCH. DELPHINE, RN, STATES HE LIKES THE MIXED JIMENEZ ENSURE CLEAR DRINKS. HE GETS FULL AFTER A COUPLE OF BITES THEN DOESN'T WANT TO EAT ANYMORE. DELPHINE SAID HE ATE SOME OATMEAL YESTERDAY MORNING. WILL PUT OATMEAL WITH 2 SCOOPS OF BENEPROTEIN (50 HARJEET AND 12 GM PROTEIN IN 2 SCOOPS), ENSURE CLEAR MIXED JIMENEZ, AND AN APPLESAUCE ON HIS BREAKFAST TRAY. WILL SEND ENSURE CLEAR MIXED JIMENEZ AT ALL MEALS. WILL SEND OATMEAL WITH 2 SCOOPS BENEPROTEIN AT EACH BREAKFAST. PATIENT IS NOT GOING TO MEET HIS NUTRITION NEEDS WITH CURRENT MINIMAL INTAKE. SOUNDS LIKE HE HAS BEEN GETTING FULL QUICKLY FOR AWHILE. UNABLE TO QUANTIFY ANY WEIGHT LOSS DUE TO PATIENT SLEEPING AGAIN THIS AFTERNOON. REGULAR DIET IN PLACE. RD WILL FOLLOW UP IN 2-3 DAYS.
--- NOTE | 2024-09-24 15:00 | NUR ---
ORDERS RECEIVED TO TRANSFER TO MED-SURG. PATIENT IS STAY IN ROOM 128 HOUSE CONVENIENCE.
--- NOTE | 2024-09-24 16:00 | NUR ---
ASSESSMENT DONE. MONITOR DC'D. DENIES PAIN. STATES HE FEELS TIRED. HAS BEEN TAKING SIPS OF CLEAR ENSURE THROUGH THE DAY. SL TO LEFT UPPER ARM IS PATENT. NO FURTHER CHANGES. RESTING.
--- NOTE | 2024-09-24 17:30 | NUR ---
SLEEPING, NOT AWAKENED FOR DINNER AT THIS TIME.
--- NOTE | 2024-09-24 18:15 | NUR ---
CONTINUES TO SLEEP. SAID NAME A COUPLE OF TIMES AND DIDN'T WAKE. NO DISTRESS NOTED.
--- NOTE | 2024-09-24 19:35 | NUR ---
handoff report received from day shift RN. patient awake in bed with son at bedside. no needs at this time. call light within reach.
--- NOTE | 2024-09-24 20:45 | NUR ---
PATIENT ASSESSMENT COMPLETE. PATIENT STATES HE IS FINISHED WITH HIS DINNER TRAY. PATIENT ONLY HAD COUPLE BITES OF APPLE SAUCE AND SAID HE WAS FULL. PATIENT PROVIDED WITH ENSURE. PATIENT IV SITE WNL. COLOSTOMY IN PLACE, SITE WNL. PATIENT REMAINS ON ROOM AIR, DENIES ANY SOB OR PAIN AT THIS TIME. VITAL SIGNS STABLE. PATIENT SON REMAINS AT BEDSIDE, NO NEEDS AT THIS TIME. CALL LIGHT WITHIN REACH.
[2024-09-24] MEDS ORDERED: MIRTAZAPINE 15 MG TAB PO SCH (21:00)
--- NOTE | 2024-09-24 22:49 | NUR ---
patient resting in bed with eyes closed, respirations even and unlabored. no distress noted. call light within reach.
--- NOTE | 2024-09-24 23:30 | NUR ---
PRN Morphine given for generalized pain and discomfort per EMAR. patient ambulates to bathroom with FWW, and back to bed. patient steady on feet. patient linen changed, new brief provided. patient has no further needs at this time. call light within reach.
--- NOTE | 2024-09-25 02:30 | NUR ---
PATIENT RESTING IN BED WITH EYES CLOSED, RESPIRATIONS EVEN AND UNLABORED. NO NEEDS AT THIS TIME. CALL LIGHT WITHIN REACH.
[2024-09-25 02:59] VITALS: BP 122/86
--- NOTE | 2024-09-25 03:07 | NUR ---
patient up to bathroom with FWW and x1 SBA. patient steady on feet. patient voids and then back to bed. vital signs taken and recorded. fresh Ensure provided per patient request. patient denies any further needs. call light within reach.
--- NOTE | 2024-09-25 05:05 | NUR ---
lab in room for morning labs. patient has no needs at this time. call light within reach.
[2024-09-25 05:24] LABS: EOSINOPHILS 1.8 % (0-6); HEMATOCRIT 30.4 % (35.0-50.0); LYMPHOCYTES 11.9 % (24-44); MCH 25.7 (27-36); MCV 77.8 fl (81-99); MONOCYTES 8.9 % (0-12); NEUTROPHILS 76.4 % (39-80); PLATELET COUNT 343 K/uL (140-440); RBC 3.91 M/ul (4.3-5.7); RDW 22.6 (10.5-15.0)
[2024-09-25 05:34] LABS: ALBUMIN 1.5 g/dL (3.4-5.0); ALBUMIN/GLOBULIN RATIO 0.42 (1.1-2.4); BILIRUBIN, TOTAL 0.7 ng/dL (0.2-1.0); BUN/CREATININE RATIO 10.2 (6.0-28.6); CALCIUM 7.2 mg/dL (8.5-10.1); CREATININE, SERUM 0.49 mg/dL (0.70-1.30); MAGNESIUM 1.4 mg/dL (1.8-2.4); PROTEIN, TOTAL 5.1 g/dL (6.4-8.2)
[2024-09-25 05:41] LABS: SMEAR REVIEW BLOOD SEE COMMENTS
[2024-09-25 05:44] VITALS: BP 120/86
--- NOTE | 2024-09-25 06:20 | NUR ---
PATIENT UP TO BATHROOM TO VOID. PATIENT AMBULATES WITH FWW, STEADY ON FEET. VITAL SIGNS TAKEN AND RECORDED. 75ML OF LIQUID BROWN STOOL EMPTIED FROM COLOSTOMY BAG. PATIENT PROVIDED WITH NEW GOWN AND BRIEF. PATIENT WEIGHT TAKEN WITH STANDING SCALE AND RECORDED. PATIENT HAS NO FURTHER NEEDS AT THIS TIME. CALL LIGHT WITHIN REACH.
--- NOTE | 2024-09-25 07:55 | NUR ---
PT RESTING IN BED WITH EYES CLOSED. RR EVEN AND UNLABORED. CALL LIGHT IN REACH. REPORT RECEIVED FROM NIGHT RUI MCGILL.
--- NOTE | 2024-09-25 08:22 | NUR ---
RN IN ROOM TO ANSWER CALL LIGHT. PT REQUESTS ASSISTANCE UP TO BATHROOM TO VOID. USING FWW - STEADY ON FEET, SBA. PT SAT UP IN BED FOR BREAKFAST, REPORTS "BRITT HUNGRY" THIS AM. IV SITE PATENT, ABX STARTED. CALL LIGHT IN REACH.
[2024-09-25 08:46] VITALS: BP 121/86
[2024-09-25] MEDS ORDERED: POTASSIUM CHLORIDE 10 MEQ TABCR PO ONE (09:00)
[2024-09-25] MEDS ORDERED: MAGNESIUM SULFATE 2 GM/50 ML BAG IV ONE (09:00)
--- NOTE | 2024-09-25 09:05 | NUR ---
ROUNDING IN ROOM WITH PT - DISCUSS PLAN FOR DC HOME WITH SON. PT AGREES WITH PLAN, STATES UNDERSTANDING. AM ASSESSMENT COMPLETE. 1+ PITTIND EDEMA TO KNEE NOTED BILATERALLY, SHAHEED HOSE IN PLACE. SOB IMPROVED WHEN AMBULATING. PT UP TO BATHROOM FREQUENTLY WITH LASIX, TWO URNIALS PLACED AT BEDSIDE. 3 BITES OF BREAKFAST EATEN, STATES HE FEELS FULL FAST. WILL DISCUSS INSTRUCTIONS FOR MEDICATIONS AND PLAN WITH FAMILY WHEN HERE TO PICK PT UP.
--- NOTE | 2024-09-25 09:15 | NUR ---
PATIENT ALERT AND ORIENTED IN BED. STATES HE IS CONTINUING TO PLAN TO GO HOME WITH SON AT DISCHARGE. IMM LETTER DISCUSSED, PATIENT SIGNS AND COPY PROVIDED. WILL SEND NOTES TO [facility] FOR OUTPATIENT PT REFERRAL NEEDED.
--- NOTE | 2024-09-25 11:40 | NUR ---
PT RESTING IN BED WITH EYES CLOSED. SISTER SITTING AT BEDSIDE. BOTH DENY NEEDS AT THIS TIME. URINAL EMPTIED.
[2024-09-25] MEDS ORDERED: KLOR-CON 1010 MEQ PO (12:20)
[2024-09-25] MEDS ORDERED: LASIX40 MG PO (12:21)
[2024-09-25] MEDS ORDERED: REMERON15 MG PO (12:22)
[2024-09-25] MEDS ORDERED: AMOXICILLIN-CL1 EACH PO (12:22)
--- NOTE | 2024-09-25 12:45 | NUR ---
PT PROVIDED DC HOME INSTRUCTIONS WITH SISTER - PT STATES UNDERSTANDING OF INSTRUCTIONS AND APPOINTMENTS MADE. VS STABLE. IV REMOVED AND CATH INTACT. PT WHEELED TO FRONT BY THIS RN.
--- NOTE | 2024-09-27 10:13 | EKG ---
[facility] [address] [facility] [place] [address] Signed Sinus tachycardia Low voltage QRS Nonspecific T wave abnormality Abnormal ECG When compared with ECG of 22-SEP-2024 14:20, QT has shortened Confirmed by Nimo Correa DO ([id number]) on 09/27/2024 10:13:19 AM Electronically Signed By: NIMO CORREA DO 09/27/24 1013 PATIENT NAME: TRUONG CORDERO Electrocardiogram DATE OF : 55 PHYSICIAN: NIMO CORREA DO REPORT #: [id number] REPORT IS CONFIDENTIAL AND NOT TO BE RELEASED WITHOUT AUTHORIZATION
== END 2024-09-25 12:50 | disposition home or self-care (01) | DRG 871 ==
LOC: ED 08:43 → CCU 16:33
PROVIDERS: Emergency Medicine; Student in an Organized Health Care Education/Training Program; ADMIT Family Medicine; ATTEND Family Medicine
PROC: 0W9G3ZZ Drainage of Peritoneal Cavity, Percutaneous Approach (ICD-10-PCS; principal; 2024-09-21)
PROC: 3E03329 Introduction of Other Anti-infective into Peripheral Vein, Percutaneous Approach (ICD-10-PCS; 2024-09-21)
PROC: 30233J1 Transfusion of Nonautologous Serum Albumin into Peripheral Vein, Percutaneous Approach (ICD-10-PCS; 2024-09-23)
DX: A41.9 Sepsis, unspecified organism (principal); J18.9 Pneumonia, unspecified organism; N17.9 Acute kidney failure, unspecified; C78.7 Secondary malignant neoplasm of liver and intrahepatic bile duct; C18.9 Malignant neoplasm of colon, unspecified; R18.8 Other ascites; N39.0 Urinary tract infection, site not specified; Z66 Do not resuscitate; F50.89 Other specified eating disorder; R06.02 Shortness of breath; F12.10 Cannabis abuse, uncomplicated; E83.42 Hypomagnesemia; E87.6 Hypokalemia; D63.8 Anemia in other chronic diseases classified elsewhere; Z93.3 Colostomy status; Z87.891 Personal history of nicotine dependence
CPT/HCPCS: 36415; 36430; 36592; 51702; 51798; 70450; 71045; 74177; 80048; 80053; 80307; 81001; 82803; 83605; 83615; 83735; 83880; 84100; 84157; 84439; 84443; 84484; 85025; 85060; 85610; 86850; 86900; 86901; 86922; 87040; 87070; 87075; 87088; 87205; 89051; 93005; 93010; 99285-25; A9270; G0480; J0456; J0696; J1940; J2060; J2270; J2405; J3370; J3475; J3480; J3490; J7030; J7050; J7060; J7121; P9016; P9047; Q9967